=== PATIENT | female | born 1960 | race Caucasian/White ===

== ENCOUNTER 2025-03-05 11:12 | Outpatient (CLI) | payer OTHER, SELFPAY ==
--- NOTE | ~2025-03-05 | XR_ITS ---
XR cervical spine min 6V Indication: Cervical radicular pain Comparison: None Findings: Grade 1 retrolisthesis of C5 on C6, no fracture. Moderate loss of disc height C5-C6, no subluxation with flexion-extension. Soft tissues unremarkable Impression: No acute abnormality. Reviewed, dictated and finalized at location A. Impression: No acute abnormality.
== END 2025-03-05 11:13 | disposition home or self-care (01) ==
LOC: MICIMG 11:19
PROVIDERS: PCP Nurse Practitioner Family; Visit Provider Nurse Practitioner Family
DX: M54.12 Radiculopathy, cervical region (principal)
CPT/HCPCS: 72052